=== PATIENT | female | born 1975 | race African-American/Black ===

== ENCOUNTER 2018-11-23 12:23 | Emergency (ER) | payer OTHER ==
[~2018-11-23] VITALS: Ht 167.6 cm; Wt 94.3 kg
[2018-11-23 12:56] VITALS: BP 142/70
[2018-11-23] MEDS ORDERED: ACETAMINOPHEN 500 MG TAB PO ONE (13:45)
== END 2018-11-23 14:27 | disposition home or self-care (01) ==
LOC: ER 12:23
DX: S40.022A Contusion of left upper arm, initial encounter (principal); M54.2 Cervicalgia; V49.49XA Driver injured in collision with other motor vehicles in traffic accident, initial encounter; Y93.89 Activity, other specified; Y99.8 Other external cause status; Y92.488 Other paved roadways as the place of occurrence of the external cause

== ENCOUNTER 2020-12-25 10:28 | Emergency (ER) | payer OTHER ==
[~2020-12-25] VITALS: Ht 167.6 cm; Wt 92.5 kg
[2020-12-25 10:41] VITALS: BP 109/58
== END 2020-12-25 12:22 | disposition home or self-care (01) ==
LOC: ER 10:28
DX: L02.211 Cutaneous abscess of abdominal wall (principal); Z90.89 Acquired absence of other organs
CPT/HCPCS: 99281; J7030